=== PATIENT | female | born 1995 | race Two or more races ===

== ENCOUNTER 2019-02-27 17:01 | Emergency (ER) | payer BC ==
[~2019-02-27] VITALS: Ht 157.5 cm; Wt 77.5 kg
[2019-02-27 17:27] VITALS: BP 135/81
[2019-02-27] MEDS ORDERED: DEXAMETHASONE 4 MG TABLET ONE (18:49)
[2019-02-27] MEDS ORDERED: DEXAMETHASONE 4 MG TABLET PO ONE (19:00)
== END 2019-02-27 19:48 | disposition home or self-care (01) ==
LOC: ED 19:40
DX: H66.001 Acute suppurative otitis media without spontaneous rupture of ear drum, right ear (principal); T78.49XA Other allergy, initial encounter; H60.311 Diffuse otitis externa, right ear; H60.11 Cellulitis of right external ear; X58.XXXA Exposure to other specified factors, initial encounter
CPT/HCPCS: 70486; 99284; Q0177